=== PATIENT | female | born 1985 | race African-American/Black ===

== ENCOUNTER 2025-01-13 05:27 | Emergency (ER) | payer OTHER ==
[~2025-01-13] VITALS: Ht 154.9 cm; Wt 75.0 kg
[2025-01-13 06:18] LABS: COVID AG,FIA SOURCE NASAL SWAB
[2025-01-13 07:01] LABS: INFLUENZA TYPE A NEGATIVE FOR TYPE A (NEGATIVE); INFLUENZA TYPE B NEGATIVE FOR TYPE B (NEGATIVE)
[2025-01-13 07:02] LABS: SARS-COV2 (COVID) ANTIGEN,FIA Negative (Negative)
[2025-01-13 07:42] LABS: PLATELET COUNT (AUTO) 204 K/uL (150-450); RED BLOOD CELL COUNT(AUTO) 4.38 MIL/uL (4.00-5.20); RED CELL DISTRIBUTION WIDTH 13.2 % (11.5-14.5); WHITE BLOOD COUNT (AUTO) 6.2 K/uL (4.5-11.0)
[2025-01-13 07:51] LABS: CALCIUM, TOTAL 8.4 mg/dL (8.8-10.5); CREATININE 0.87 mg/dL (0.60-1.30); GLOMERULAR FILTR. RATE CALC > 60 mL/min (>60); GLUCOSE,RANDOM 98 mg/dL (70-110); SODIUM SERUM 132 mmol/L (136-145); UREA NITROGEN, BLOOD 11 mg/dL (7-18)
[2025-01-13] MEDS: SODIUM CHLORIDE 0.9% 1,000 ML IV ONE (07:53)
[2025-01-13] MEDS: ONDANSETRON HCL 4 MG/2 ML VIAL IVP ONE (07:54)
[2025-01-13] MEDS: KETOROLAC TROMETHAMINE 30 MG/ML VIAL IVP ONE (07:54)
[2025-01-13] MEDS: ACETAMINOPHEN/CODEINE 300-30 MG TABLET PO ONE (07:54)
[2025-01-13] MEDS: GuaiFENesin/D-METHORPHAN [SUGAR-FREE] 200-20MG/10 ML SYRUP UDCUP PO ONE (07:55)
[2025-01-13 08:10] LABS: RBC MORPHOLOGY COMMENT NORMAL RBC MORPH
[2025-01-13] MEDS ORDERED: ACET-2080 PO (08:37)
[2025-01-13] MEDS ORDERED: ONDA-104 PO (08:37)
[2025-01-13] MEDS ORDERED: GUAIFDM PO (08:37)
[2025-01-13] MEDS ORDERED: IBUP-1554 PO (08:37)
[2025-01-13 09:17] VITALS: BP 112/65; PULSE 87; RESP 16; TEMP 97.9; O2SAT 98
== END 2025-01-13 09:17 | disposition home or self-care (01) ==
LOC: EMS 05:30
DX: J20.9 Acute bronchitis, unspecified (principal); J06.9 Acute upper respiratory infection, unspecified; R07.89 Other chest pain; R50.9 Fever, unspecified; R11.0 Nausea; Z20.822 Contact with and (suspected) exposure to COVID-19
CPT/HCPCS: 99284; 96374; 96361; 96375; 87426; 80048; 84703; 85025; 87804; 36415; J1885; J2405; J7030